=== PATIENT | female | born 1980 | race Two or more races ===

== ENCOUNTER 2021-01-25 10:29 | Emergency (ER) | payer OTHER ==
[~2021-01-25] VITALS: Ht 154.9 cm; Wt 106.1 kg
[2021-01-25 10:30] VITALS: BP 111/87
--- NOTE | 2021-01-25 11:00 | RAD ---
AP chest. HISTORY: Syncope AP view was taken of the chest. Heart is normal in size. There is no pleural effusion. There are no a cute infiltrates. IMPRESSION: 1. No acute infiltrates. Electronically signed by: Harley García MD (01/25/2021 10:57 AM) [id number]
[2021-01-25 11:01] LABS: BASO % 1 % (0-3); EOS # 0.1 x10^3/uL (0.0-0.7); EOS % 1 % (0-3); HEMATOCRIT 39.4 % (36.0-47.0); HEMOGLOBIN 12.8 g/dL (12.0-15.5); LYMPH # 2.5 x10^3/uL (1.0-4.8); LYMPH % 30 % (24-48); MEAN CORPUSCULAR HEMOGLOBIN 27 pg (25-35); MEAN CORPUSCULAR HGB CONC 33 g/dL (31-37); MEAN CORPUSCULAR VOLUME 84 fL (79-100); MONO # 0.6 x10^3/uL (0.0-1.1); MONO % 7 % (0-9); NEUT # 5.1 x10^3uL (1.8-7.7); NEUT % 61 % (31-73); PLATELET COUNT 298 x10^3/uL (140-400); RED CELL DISTRIBUTION WIDTH 14.8 % (11.5-14.5); WHITE BLOOD COUNT 8.3 x10^3/uL (4.0-11.0)
--- NOTE | 2021-01-25 11:01 | RAD ---
EXAM: CT head without contrast INDICATION: Stroke alert COMPARISON: None TECHNIQUE: Axial CT imaging through the head without intravenous contrast. One or more of the following individualized dose reduction techniques were utilized for this examinat ion: 1. Automated exposure control 2. Adjustment of the mA and/or kV according to patient size 3. Use of iterative reconstruction technique. FINDINGS: No intracranial hemorrhage, acute infarct, or mass lesion. Mendoza-white matter differentiation is maint ained. Ventricles and sulci are normal. The calvarium is intact. Visualized sinuses, mastoid air cell s, and visualized portion of globes and orbits are unremarkable. IMPRESSION: No acute intracranial abnormality. FOR INTERNAL CODING PURPOSES Critical result: Findings discussed with the nurse practitioner in the ER at 01/25/2021 10:56AM. RESULT CODE: (C) Electronically signed by: Denise Duff MD (01/25/2021 10:59 AM) [id number]
--- NOTE | 2021-01-25 11:02 | EKG ---
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
[2021-01-25 11:11] LABS: CALCIUM 8.7 mg/dL (8.5-10.1); CREATININE 0.7 mg/dL (0.6-1.0); GFR 91.8; POTASSIUM 4.2 mmol/L (3.5-5.1)
[2021-01-25] MEDS ORDERED: KETOROLAC 15 MG/ML VIAL. IVP ONE (11:15)
[2021-01-25] MEDS ORDERED: diphenhydrAMINE 50 MG/ML VIAL IVP ONE (11:15)
[2021-01-25] MEDS ORDERED: PROCHLORPERAZINE 10 MG/2 ML VIAL. IV ONE (11:15)
[2021-01-25 11:19] LABS: ALBUMIN 3.6 g/dL (3.4-5.0); TOTAL BILIRUBIN 0.3 mg/dL (0.2-1.0); TOTAL PROTEIN 7.1 g/dL (6.4-8.2)
[2021-01-25 11:31] LABS: BACTERIA,URINE 0 /HPF (0-FEW); BILIRUBIN,URINE NEG (NEG); CLARITY,URINE CLEAR; COLOR,URINE COLORLESS; GLUCOSE,URINE NEG (NEG); NITRITE,URINE NEG (NEG); RBC,URINE 0 /HPF (0-2); SQUAMOUS EPITHELIAL CELL,UR MOD /LPF; UROBILINOGEN,URINE 0.2 mg/dL (0.2 mg/dL); WBC,URINE OCC /HPF (0-4)
--- NOTE | 2021-01-25 11:33 | PHYS DOC ---
General Adult EDM: Chief Complaint: SYNCOPE HPI: HPI: Patient is a 40-year-old female who presents after syncopal episode at work. Syncopal episode was witnessed by coworkers. coworkers stated that she did not hit her head but she fell out of her chair onto the floor. Patient states "I have had a headache and chest pain for 1 week". Patient is denying chest pain at this time. Denies shortness of breath. Patient's only complaint is a headache. Denies history of migraines. Patient has a history of A. fib which she had an ablation. Denies being on blood thinners. patient is alert and oriented x3. Hemodynamically stable. Review of Systems: Review of Systems: Constitutional: Denies fever or chills Eyes: Denies change in visual acuity HENT: Denies nasal congestion or sore throat Respiratory: Denies cough or shortness of breath Cardiovascular: Denies chest pain or edema GI: Denies abdominal pain, nausea, vomiting, bloody stools or diarrhea : Denies dysuria Musculoskeletal: Denies back pain or joint pain Integument: Denies rash Neurologic: Reports headache, left-sided weakness Endocrine: Denies polyuria or polydipsia Lymphatic: Denies swollen glands Psychiatric: Denies depression or anxiety Physical Exam: PE: Constitutional: Well developed, well nourished, no acute distress, slow to respond HENT: Normocephalic, atraumatic, bilateral external ears normal, oropharynx moist, no oral exudates, nose normal. [] Eyes: PERRLA, EOMI, conjunctiva normal, no discharge. [] Neck: Normal range of motion, no tenderness, supple, no stridor. [] Cardiovascular:Heart rate regular rhythm, no murmur [] Lungs & Thorax: Bilateral breath sounds clear to auscultation [] Abdomen: Bowel sounds normal, soft, no tenderness, no masses, no pulsatile masses. [] Skin: Warm, dry, no erythema, no rash. [] Back: No tenderness, no CVA tenderness. [] Extremities: No tenderness, no cyanosis, no clubbing, ROM intact, no edema. [] Neurologic: Alert and oriented X 3, left-sided arm and leg weakness Psychologic: Affect normal, judgement normal, mood normal. [] EKG: EKG: Sinus rhythm. 72 bpm. Radiology/Procedures: Radiology/Procedures: []AP chest. HISTORY: Syncope AP view was taken of the chest. Heart is normal in size. There is no pleural effusion. There are no acute infiltrates. IMPRESSION: 1. No acute infiltrates. Electronically signed by: Harley García MD (01/25/2021 10:57 AM) [id number] EXAM: CT head without contrast INDICATION: Stroke alert COMPARISON: None TECHNIQUE: Axial CT imaging through the head without intravenous contrast. One or more of the following individualized dose reduction techniques were utilized for this examination: 1. Automated exposure control 2. Adjustment of the mA and/or kV according to patient size 3. Use of iterative reconstruction technique. FINDINGS: No intracranial hemorrhage, acute infarct, or mass lesion. Mendoza-white matter differentiation is maintained. Ventricles and sulci are normal. The calvarium is intact. Visualized sinuses, mastoid air cells, and visualized portion of globes and orbits are unremarkable. IMPRESSION: No acute intracranial abnormality. FOR INTERNAL CODING PURPOSES Critical result: Findings discussed with the nurse practitioner in the ER at 01/25/2021 10:56AM. RESULT CODE: (C) Heart Score: C/O Chest Pain: No Risk Factors: Risk Factors: DM, Current or recent (<one month) smoker, HTN, HLP, family history of CAD, obesity. Risk Scores: Score 0 - 3: 2.5% MACE over next 6 weeks - Discharge Home Score 4 - 6: 20.3% MACE over next 6 weeks - Admit for Clinical Observation Score 7 - 10: 72.7% MACE over next 6 weeks - Early Invasive Strategies Course & Med Decision Making: Course & Med Decision Making Pertinent Labs and Imaging studies reviewed. (See chart for details) [] 40 old female who presents after a syncopal episode that was witnessed by coworkers at work today. Coworker stated that she was unresponsive for 20 to 30 seconds. He denied patient hitting her head but states that she fell out of her chair. Patient's only complaint at this time is headache and weakness. Patient reports she has had a headache and chest pain for the last week. Denying chest pain at this time. Patient is alert and oriented x3. When patient arrived into the emergency room she had some weakness on her left arm and was unable to lift her left leg. NIH 2, patient had left leg weakness only. Code stroke was activated. CT of head was negative for acute abnormalities. Patient's weakness has improved on reassessment. Patient is tearful and is requesting medication for her headache. Patient given Benadryl, Compazine, Toradol. All labs unremarkable. Troponin is negative. UA is negative for infection. Patient is able to move all extremities without weakness on reassessment. Patient is also speaking more clearly. Patient states that she thinks that she had an anxiety attack and that is what was causing her symptoms. Given strict return precautions. She was given a referral for cardiology to make a follow-up appointment. Patient is hemodynamically stable and able to ambulate on her own upon discharge. Agnes Disclaimer: Agnes Disclaimer: This electronic medical record was generated, in whole or in part, using a voice recognition dictation system. Departure Departure: Impression: Primary Impression: Anxiety Additional Impressions: Headache Qualified Codes: R51.9 - Headache, unspecified Syncope Qualified Codes: R55 - Syncope and collapse Disposition: 01 HOME / SELF CARE / HOMELESS Condition: STABLE Referrals: PCP,NO (PCP) Patient Instructions: Anxiety and Panic Attacks Additional Instructions: You were seen in the emergency room for syncopal episode at work. You voiced her concerns that you have been having some weakness and anxiety. All of your labs were unremarkable. CT of your head was negative for any acute abnormalit ies. 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 Please return emergency room if you have worsening symptoms or concerns. EMERGENCY DEPARTMENT GENERAL DISCHARGE INSTRUCTIONS Thank you for coming to [facility] (ED) today and trusting us with you care. We trust that you had a positivie experience in our Emergency Department. If you wish to speak to the department management, you may call the director at [phone]. YOUR FOLLOW UP INSTRUCTIONS ARE FOLLOWS: 1. Do you have a private Doctor? If you do not have a private doctor, please ask for a resource list of physicians or clinics that may be able to assist you with follow up care. 2. The Emergency Physician has interpreted your x-rays. The X-Ray specialist will also review them. If there is a change in the findings, you will be notified in 48 hours when at all possible. 3. A lab test or culture has been done, your results will be reviewed and you will be notified if you need a change in treatment. ADDITIONAL INSTRUCTIONS AND INFORMATION: 1. Your care today has been supervised by a physician who is specially trained in emergency care. Many problems require more than one evaluation for a complete diagnosis and treatment. We recommend that you schedule your follow up appointment as recommended to ensure complete treatment of you illness or injury. If you are unable to obtain follow up care and continue to have a problem, or if your condition worsens, we recommend that you return to the ED. 2. We are not able to safely determine your condition over the phone nor are we able to give sound medical advice over the phone. For these safety reasons, if you call for medical advice we will ask you to come to the ED for further evaluation. 3. If you have any questions regarding these discharge instructions please call the ED at [phone]. SAFETY INFORMATION: In the interest of safety, wellness, and injury prevention; we encourage you to wear your sealbelt, if you smoke; quite smoking, and we encourage family to use a protective helmet for bicycling and other sporting events that present an increased risk for head injury. IF YOUR SYMPTOMS WORSEN OR NEW SYMPTOMS DEVELOP, OR YOU HAVE CONCERNS ABOUT YOUR CONDITION; OR IF YOUR CONDITION WORSENS WHILE YOU ARE WAITING FOR YOUR FOLLOW UP APPOINTMENT; EITHER CONTACT YOUR PRIMARY CARE DOCTOR, THE PHYSICIAN WHOSE NAME AND NUMBER YOU WERE GIVEN, OR RETURN TO THE ED IMMEDIATELY. ADAM REYES APRN Jan 25, 2021 11:33
== END 2021-01-25 12:15 | disposition home or self-care (01) ==
LOC: ER 10:29
DX: R55 Syncope and collapse (principal); R51.9 Headache, unspecified; F41.9 Anxiety disorder, unspecified; I48.91 Unspecified atrial fibrillation; W07.XXXA Fall from chair, initial encounter; Y93.89 Activity, other specified; Y92.89 Other specified places as the place of occurrence of the external cause; Y99.8 Other external cause status
CPT/HCPCS: 36415; 70450; 71045; 80053; 81001; 84484; 85025; 93005; 96374; 96375; 99285; J0780; J1200; J1885